=== PATIENT | female | born 1990 | race Caucasian/White ===

== ENCOUNTER 2018-10-31 11:00 | Inpatient (IN) ==
[2018-10-31 11:34] LABS: URINE SOURCE VOIDED
[2018-10-31 11:37] LABS: BASO# 0.03 X1000 (0.0-0.2); BASO% 0.2 % (0.0-0.8); EOS# 0.01 X1000 (0.0-0.7); EOS% 0.1 % (0.0-10.0); HEMATOCRIT 26.5 % (37.0-47.0); HEMOGLOBIN 7.9 g/dL (12.0-16.0); IMM GRAN# 0.04 X1000 (0.0-0.04); IMM GRAN% 0.3 % (0.0-0.5); LYMPH# 3.02 X1000 (1.2-3.4); LYMPH% 20.2 % (20.5-51.1); MCH 22.2 PG (27-31); MCHC 29.8 g/dL (33-37); MCV 74.4 FL (81-99); MONO# 0.61 X1000 (0.11-0.59); MONO% 4.1 % (1.7-9.3); MPV 11.1 FL (7.4-10.4); NEUT# 11.24 X1000 (1.4-6.5); NEUT% 75.1 % (42.2-75.2); PLT 228 X1000 (130-400); RBC 3.56 XMIL (4.2-5.4); WBC 14.95 X1000 (4.8-10.8)
[2018-10-31 11:42] LABS: BILIRUBIN URINE NEGATIVE (NEGATIVE); BLOOD URINE NEGATIVE (NEGATIVE); CLARITY CLEAR (CLEAR); COLOR YELLOW; GLUCOSE URINE NEGATIVE (NEGATIVE); KETONE URINE NEGATIVE (NEGATIVE); LEUKOCYTES URINE TRACE (NEGATIVE); NITRITE URINE NEGATIVE (NEGATIVE); PROTEIN URINE NEGATIVE (NEGATIVE); SP GRAVITY URINE 1.005; UROBILINOGEN URINE NORMAL
[2018-10-31 11:53] LABS: UR AMPHETAMINES QUAL PRESUMPTIVE POSITIVE (NONE DETECT); UR BARBITUATES QUAL NONE DETECTED (NONE DETECT); UR BENZODIAZEPIN QUAL NONE DETECTED (NONE DETECT); UR CANNABINOIDS QUAL NONE DETECTED (NONE DETECT); UR COCAINE QUAL NONE DETECTED (NONE DETECT); UR METHADONE QUAL NONE DETECTED (NONE DETECT); UR METHAMPHETAMINE QUAL PRESUMPTIVE POSITIVE (NONE DETECT); UR OPIATES QUAL NONE DETECTED (NONE DETECT); UR OXYCODONE QUAL NONE DETECTED (NONE DETECT); UR PCP QUAL NONE DETECTED (NONE DETECT); UR PROPOXYPHENE QUAL NONE DETECTED (NONE DETECT); UR TCA QUAL NONE DETECTED (NONE DETECT)
[2018-10-31 11:54] LABS: RPR NON-REACTIVE (NONREACTIVE)
[2018-10-31 11:58] LABS: RAPID HIV PRESUMPTIVE NEGATIVE
[2018-10-31] MEDS ORDERED: PEPCID PO PRN (12:11)
[2018-10-31] MEDS ORDERED: LR 500 ML IV ONE (12:11)
[2018-10-31] MEDS ORDERED: ZOFRAN IV PRN (12:11)
[2018-10-31] MEDS ORDERED: REGLAN PO ONE (12:11)
[2018-10-31] MEDS ORDERED: STADOL IV PRN (12:11)
[2018-10-31] MEDS ORDERED: PEPCID IV PRN (12:11)
[2018-10-31] MEDS ORDERED: TYLENOL PO PRN (12:11)
[2018-10-31] MEDS ORDERED: PEPCID PO ONE (12:11)
[2018-10-31] MEDS ORDERED: AMPICILLIN 2 GM/NS 2 GM/100 ML IVPB IV ONE ×2 (12:11)
[2018-10-31] MEDS ORDERED: KEFZOL 1 GM/D5W 1 GM/50 ML IVPB IV PRN (12:11)
[2018-10-31] MEDS ORDERED: PITOCIN 30 UNITS/NS 30 UNIT/500 ML IV.SOLN IV SCH ×2 (12:15→17:45)
[2018-10-31] MEDS ORDERED: SODIUM CHLORIDE 0.9% INJ SCH (12:15)
[2018-10-31 12:37] LABS: LYMPHS 15 % (21-51); SEGS 85 % (42-75)
[2018-10-31 12:38] LABS: HYPOCHROM 1+; MICROCYTOSIS 1+
[2018-10-31] MEDS: LR 1,000 ML IV SCH ×2 (12:40→13:16)
[2018-10-31] MEDS ORDERED: FENTANYL-BUPIV-NS 2 MCG-0.1% 200 ML EPIDURAL PRN (13:27)
[2018-10-31] MEDS: NAROPIN 0.2% INJ ONE ×2 (14:14→15:15)
[2018-10-31] MEDS ORDERED: NAROPIN 0.2% ONE (15:26)
[2018-10-31 15:52] LABS: RUBELLA SCREEN IMMUNE (IMMUNE)
[2018-10-31] MEDS ORDERED: AMPICILLIN 1 GM/NS 1 GM/50 ML IVPB IV SCH ×2 (16:11→16:13)
[2018-10-31] MEDS ORDERED: XYLOCAINE-MPF 1% INJ PRN ×2 (16:25→17:42)
[2018-10-31] MEDS ORDERED: FLEET MINERAL OIL ENEMA PR ONE (16:25)
[2018-10-31] MEDS ORDERED: MINERAL OIL PO ONE (16:42)
[2018-10-31] MEDS ORDERED: AMBIEN PO PRN (17:42)
[2018-10-31] MEDS ORDERED: M-M-R II VACCINE SUBQ ONE (17:42)
[2018-10-31] MEDS ORDERED: ATARAX PO PRN (17:42)
[2018-10-31] MEDS ORDERED: MINERAL OIL PO PRN (17:42)
[2018-10-31] MEDS ORDERED: BOOSTRIX VACCINE IM ONE (17:42)
[2018-10-31] MEDS ORDERED: BENADRYL PO PRN (17:42)
[2018-10-31] MEDS ORDERED: BENADRYL IV PRN (17:42)
[2018-10-31] MEDS ORDERED: PERI MEDS (DERMOPLAST/NUPERCAINAL/TUCKS) MISC PRN (17:42)
[2018-10-31] MEDS ORDERED: CYTOTEC PO PRN (17:42)
[2018-10-31] MEDS ORDERED: PITOCIN IM PRN (17:42)
[2018-10-31] MEDS ORDERED: HYDROXYZINE IM PRN (17:42)
[2018-10-31] MEDS ORDERED: PITOCIN 20 UNITS/NS 20 UNITS/1,000 ML IV.SOLN IV SCH (18:15)
[2018-10-31] MEDS: MOTRIN PO PRN (20:14)
[2018-10-31] MEDS: PERICOLACE PO SCH (20:14)
--- NOTE | 2018-10-31 23:16 | PROGRESS NOTE ---
DATE: 10/31/2018 SUBJECTIVE: The patient is now comfortable with epidural. OBJECTIVE: Oxytocin is just now being started. There was some difficulty in obtaining the epidural. heart rate category 1. The cervix is now a good 5/complete/-1 by RN exam. ASSESSMENT: 36 to 37 weeks gestation with ruptured membranes. PLAN: Go ahead start oxytocin at this point. cc: Bucky Wiggins MD
--- NOTE | 2018-11-01 03:13 | OPERATIVE NOTE ---
PROCEDURE DATE: 10/31/2018 SUMMARY: The patient reached complete dilation. Prepped and draped in stirrups for vaginal delivery. She had spontaneous vaginal delivery of a vigorous male, over an intact perineum from left occiput anterior. No nuchal cord. Placenta spontaneous and intact after cord blood obtained. Placenta to pathology for very limited care. (We did receive a copy for records, showing that she had one visit at 25 weeks gestation.) No lacerations. EBL 200 mL. One-minute 8. Five-minute pending at the time of this dictation. cc: Bucky Wiggins MD
[2018-11-01 07:39] LABS: HEMATOCRIT 23.2 % (37.0-47.0); HEMOGLOBIN 6.7 g/dL (12.0-16.0); MCHC 28.9 g/dL (33-37); MCV 76.1 FL (81-99); MPV 11.9 FL (7.4-10.4); RBC 3.05 XMIL (4.2-5.4); RDW 15.9 % (11.5-14.5); WBC 13.23 X1000 (4.8-10.8)
[2018-11-01] MEDS: FERROUS SULFATE PO SCH (08:53)
[2018-11-01] MEDS: MOTRIN PO PRN ×2 (08:53→17:32)
[2018-11-01] MEDS ORDERED: FERROUS SULFATE PO SCH (09:00)
--- NOTE | 2018-11-01 10:21 | PROGRESS NOTE ---
DATE: 11/01/2018 SUBJECTIVE: No complaints. OBJECTIVE: Vital Signs: Stable. General Appearance: The patient is resting comfortably. Abdomen: Fundus is nontender. LAB: Today's hemoglobin is 6.7. ASSESSMENT: Stable postoperatively. Anemia PLAN: We will start her on an iron pill today. Plan to discharge her over the next couple of days. cc: Bucky Wiggins MD MTDD
[2018-11-01] MEDS: PERICOLACE PO SCH (20:47)
[2018-11-02] MEDS: MOTRIN PO PRN (02:43)
--- NOTE | 2018-11-02 03:56 | HISTORY AND PHYSICAL ---
CHIEF COMPLAINT: Spontaneous rupture of membranes. HPI: A 28-year-old 5, para 4, AB1, presents at 36 to 37 weeks gestation complaining of rupture of membranes at 9 o'clock this morning. She says the fluid was clear. She has been having contractions off and on for the past week, thinks they may be intensifying today. She was late entry for care at [facility] at 30 weeks gestation because she says she was unaware that she was until that point. She denies any problems with the . She has had ultrasounds and there were no apparent abnormalities. PAST OB HISTORY: Spontaneous vaginal delivery x3 at term. Spontaneous miscarriage x1. PAST MEDICAL HISTORY: She says that she has a history of atrial fibrillation diagnosed at age 19. She saw several cardiologists during that period of time, has never really had any problems with it. Has never been cardioverted or required any medications. She ultimately was diagnosed definitively. She also says she has a history of a seizure disorder diagnosed at age 20. No underlying cause was ever discovered. She was previously under the care of a neurologist, but has not taken any medications for at least 3 years. The last time that she saw a neurologist was 2 to 3 years ago. Her last seizure was 5 years ago. MEDICATIONS: vitamins. ALLERGIES: None. SOCIAL HISTORY: She denies use of methamphetamine or amphetamines. She admits to previous history of IV drug abuse with heroin, last using 3 years ago. She does say she lives in a house where amphetamine and methamphetamines are used. She denies drinking alcohol. She does smoke cigarettes. 5 to 7 per day. OBJECTIVE: No records available for review. Vital Signs: Blood pressure 126/72. Urine protein is negative. General appearance: Well nourished, well developed, no distress. HEENT: Normocephalic, atraumatic. Cardiovascular: Regular rate and rhythm. No murmurs appreciated. Lungs: Clear to auscultation. Abdomen: heart rate on monitor 140. Abdomen is soft, nontender. Estimated weight of 6 pounds. Pelvis: External genitalia are normal. Cervix: Far posterior, 3/90/-1. Cephalic presentation. Pelvis feels adequate for delivery. Extremities: No cyanosis, clubbing, or edema. LABS: Hemoglobin 7.9. Rupture of membranes test positive. Drug screen is presumptive positive for both amphetamine and methamphetamine. ASSESSMENT: 1. A 36 to 37 weeks gestation with ruptured membranes. 2. Insufficient care with late entry. 3. History of drug abuse with positive drug screen here. 4. Anemia. 5. History of seizure disorder - last seizure 3 years ago. 6. Previous history of atrial fibrillation. 7. Current tobacco use. PLAN: The patient is desiring an epidural. We will likely start oxytocin after she has her epidural placed. We will treat her for beta strep prophylaxis. We will try to obtain her record if possible. Anticipate vaginal delivery. cc: Bucky Wiggins MD
--- NOTE | 2018-11-02 08:01 | DISCHARGE SUMMARY ---
ADMISSION DATE: 10/31/2018 DISCHARGE DATE: 11/02/2018 DISCHARGE DIAGNOSES: 1. 36 to 37 weeks gestation. 2. Spontaneous rupture of membranes. 3. Insufficient care. 4. History of IV drug abuse. 5. Positive drug screen here. 6. Anemia. PROCEDURES: 1. Oxytocin augmentation. 2. Vaginal delivery. HOSPITAL COURSE SUMMARY: A 28-year-old 5, para 4, AB 1, presented at 36 to 37 weeks gestation complaining of spontaneous rupture of membranes. She had a history of late entry for care with 1 visit in [place] at 30 weeks gestation. She denied any current drug use but admitted to a previous history of heroin use. She was noted to have a drug screen positive for amphetamine and methamphetamine during her hospital course. She was also noted to have an initial hemoglobin of 7.9. On physical exam, she was having a few irregular contractions. Spontaneous rupture of membranes test was positive and her cervix was 3, 90, -1. After a period of observation, she was started on oxytocin augmentation for an adequate labor pattern. She had a labor epidural. She was also treated with antibiotics for unknown group B strep status. She subsequently reached complete dilation and had a vaginal delivery of a vigorous male over an intact perineum. There were no complications at delivery and no lacerations. Her course was uneventful. Her hemoglobin was 6.7. Her vital signs remained stable. Her bleeding remained normal. On the day of discharge, her physical exam revealed stable vital signs, a nontender fundus, and normal vaginal bleeding. She will be discharged home in good condition on day #2 pending social work consult. DISCHARGE MEDICATIONS: Iron sulfate b.i.d. #60. ACTIVITY: Pelvic rest. Follow up with Dr. Pires in 6 weeks. cc: Bucky Wiggins MD
[2018-11-02 08:13] VITALS: BP 113/54
[2018-11-02] MEDS: FERROUS SULFATE PO SCH (08:48)
[2018-11-03 01:29] LABS: HIV ANTIBODY SCREEN SEE COMMENTS
[2018-11-03 08:40] LABS: HEPATITIS B SURFACE ANTIGEN SEE COMMENTS
== END 2018-11-02 11:15 | disposition home or self-care (01) | DRG 806 ==
LOC: P.OPLD 11:00 → P.LD 11:03
PROVIDERS: ADMIT Obstetrics & Gynecology; ATTEND Obstetrics & Gynecology
CPT/HCPCS: 80104; 80301; 80305; 81003; 82947; 84112; 85025; 85027; 85461; 86592; 86701; 86703; 86762; 86850; 86900; 86901; 87340; 87389; 87390; 87491; 87591; 90715; A9270; G0431; G0434; G0477; J0290; J2590; J2790; J2795; J7120